=== PATIENT | female | born 2000 | race Caucasian/White ===

== ENCOUNTER 2021-07-26 11:01 | Emergency (ER) | payer MEDICAID ==
[~2021-07-26] VITALS: Ht 154.9 cm; Wt 54.4 kg
[2021-07-26 11:27] VITALS: BP 127/61
[2021-07-26 14:21] LABS: BASOPHILS % (AUTO) 0.4 % (0.0-2.0); EOSINOPHILS % (AUTO) 0.2 % (0.0-4.0); HEMATOCRIT 42.6 % (36-48); HEMOGLOBIN 14.4 g/dL (12.0-16.0); MEAN CORPUSCULAR HEMOGLOBIN 29 pg (27-31); MEAN CORPUSCULAR HGB CONC 34 g/dL (33-37); MONOCYTES # (AUTO) 0.6 K/uL (0.8-1.0); MONOCYTES % (AUTO) 4.3 % (1.7-9.3); NEUTROPHILS # (AUTO) 11.2 K/uL (1.8-7.7); NEUTROPHILS % (AUTO) 87.1 % (42.2-75.2); PLATELET COUNT (AUTO) 288 K/uL (140-450); RED BLOOD CELL COUNT(AUTO) 4.89 MIL/uL (4.20-5.40); RED CELL DISTRIBUTION WIDTH 13.5 % (11.6-13.7); WHITE BLOOD COUNT (AUTO) 12.9 K/uL (4.5-11.0)
[2021-07-26] MEDS ORDERED: MAG355OR2 PO (14:45)
[2021-07-26] MEDS ORDERED: FAMO-90 PO (14:45)
[2021-07-26] MEDS ORDERED: ONDA-188 PO (14:45)
[2021-07-26 15:06] LABS: ANION GAP 16.9 (8-16); CARBON DIOXIDE 25.2 mmol/L (21-32); CHLORIDE 101 mmol/L (98-107); CREATININE 0.6 mg/dL (0.6-1.3); GFR ARICAN-AMERICAN 164 mL/min (>90); GLUCOSE 84 mg/dL (74-106); POTASSIUM 4.1 mmol/L (3.5-5.1); SODIUM SERUM 139 mmol/L (136-145); UREA NITROGEN, BLOOD 9 mg/dL (7-18)
[2021-07-26 15:20] LABS: ALBUMIN 3.9 g/dL (3.4-5.0); ASPARTATE AMINOTRANSFERASE 20 U/L (15-37); LIPASE 63 U/L (73-393); MAGNESIUM 2.2 mg/dL (1.8-2.4); THYROID STIMULATING HORMONE < 0.01 uIU/mL (0.34-3.74); TOTAL BILIRUBIN 0.3 mg/dL (0.0-1.0)
[2021-07-26] MEDS ORDERED: DOXY1TCP PO (16:51)
[2021-07-26 17:20] VITALS: BP 132/72
--- NOTE | 2021-07-26 17:20 | NUR ---
Patient discharged with v/s stable. Written and verbal after care instructions given THREATENED MISCARRIAGE, HYPEREMESIS GRAVIDARUM, AND FIRST TRIMESTER OF and explained. Patient alert, oriented and verbalized understanding of instructions. Ambulatory with steady gait. All questions addressed prior to discharge. ID band removed. Patient advised to follow up with PMD. Rx of DICLEGIS given. Patient educated on indication of medication including possible reaction and side effects. Opportunity to ask questions provided and answered.
== END 2021-07-26 17:20 | disposition home or self-care (01) ==
LOC: MED 11:01
DX: O21.9 Vomiting of pregnancy, unspecified (principal); O26.891 Other specified pregnancy related conditions, first trimester; Z3A.01 Less than 8 weeks gestation of pregnancy
CPT/HCPCS: 36415; 76801; 80053; 81002; 81025; 83690; 83735; 84443; 84702; 85025; 99284; Q0092

== ENCOUNTER 2021-08-24 20:47 | Emergency (ER) | payer MEDICAID ==
[~2021-08-24] VITALS: Ht 154.9 cm; Wt 49.0 kg
[~2021-08-24 20:47] MED LIST: DOXY1TCP PO
[2021-08-24 20:50] VITALS: BP 110/50
--- NOTE | 2021-08-24 20:50 | NUR ---
TO BED AMBULATORY
--- NOTE | 2021-08-24 21:00 | NUR ---
RECEIVED IN BED 7 WITH C/O VAG BLEEDING,SINCE YESTERDAY, WITH BLOOD CLOTS, HEAVY, AND PAIN WHEN SHE URINATE. 11 WEEKS, LMP 05/05
--- NOTE | 2021-08-24 21:08 | NUR ---
LAB AT BEDSIDE
--- NOTE | 2021-08-24 21:13 | NUR ---
US AT BEDSIDE
--- NOTE | 2021-08-24 22:05 | NUR ---
PELVIC EXAM DONE. 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
[2021-08-24 22:06] LABS: BASOPHILS % (AUTO) 0.5 % (0.0-2.0); EOSINOPHILS # (AUTO) 0.1 K/uL (0-0.4); EOSINOPHILS % (AUTO) 0.8 % (0.0-4.0); HEMATOCRIT 34.4 % (36-48); HEMOGLOBIN 11.9 g/dL (12.0-16.0); LYMPHOCYTES # (AUTO) 1.9 K/uL (2.5-16.5); LYMPHOCYTES % (AUTO) 19.7 % (20.5-51.1); MEAN CORPUSCULAR HEMOGLOBIN 29 pg (27-31); MEAN CORPUSCULAR HGB CONC 35 g/dL (33-37); MEAN CORPUSCULAR VOLUME 84.7 fL (80-94); MONOCYTES # (AUTO) 0.8 K/uL (0.8-1.0); NEUTROPHILS # (AUTO) 6.8 K/uL (1.8-7.7); PLATELET COUNT (AUTO) 213 K/uL (140-450); RED BLOOD CELL COUNT(AUTO) 4.06 MIL/uL (4.20-5.40); RED CELL DISTRIBUTION WIDTH 12.9 % (11.6-13.7); WHITE BLOOD COUNT (AUTO) 9.5 K/uL (4.5-11.0)
[2021-08-24 22:32] LABS: ANION GAP 12.8 (8-16); CARBON DIOXIDE 25.9 mmol/L (21-32); CREATININE 0.4 mg/dL (0.6-1.3); POTASSIUM 3.7 mmol/L (3.5-5.1)
[2021-08-24 22:33] LABS: APPEARANCE,URINE CLEAR (CLEAR); BILIRUBIN,URINE NEGATIVE (NEGATIVE); BLOOD, URINE 3+ (NEGATIVE); COLOR,URINE YELLOW (YELLOW); LEUKOCYTE ESTERASE ,URINE NEGATIVE (NEGATIVE); NITRITE, URINE NEGATIVE (NEGATIVE); PH,URINE 5.5 (5.0-9.0); UGLUCOSE NEGATIVE (NEGATIVE)
[2021-08-24 22:47] LABS: RBC,URINE 20-50 /HPF (0-5); WBC,URINE 0-5 /HPF (0-5)
--- NOTE | 2021-08-25 00:54 | NUR ---
Patient discharged with v/s stable. Written and verbal after care instructions given and explained. Patient verbalized understanding. Ambulatory with steady gait. All questions addressed prior to discharge. Advised to follow up with PMD.
== END 2021-08-25 00:54 | disposition home or self-care (01) ==
LOC: MED 20:47
DX: O20.0 Threatened abortion (principal); Z3A.11 11 weeks gestation of pregnancy; Z79.899 Other long term (current) drug therapy
CPT/HCPCS: 36415; 76801; 80048; 81001; 84702; 85025; 86900; 86901; 99284; Q0092

== ENCOUNTER 2021-10-12 16:21 | Emergency (ER) | payer MEDICAID ==
[~2021-10-12] VITALS: Ht 154.9 cm; Wt 53.5 kg
[2021-10-12 16:28] VITALS: BP 107/59
[2021-10-12 17:29] LABS: BASOPHILS # (AUTO) 0.1 K/uL (0.00-0.22); BASOPHILS % (AUTO) 0.4 % (0.0-2.0); EOSINOPHILS # (AUTO) 0.2 K/uL (0-0.4); EOSINOPHILS % (AUTO) 1.1 % (0.0-4.0); HEMATOCRIT 37.6 % (36-48); HEMOGLOBIN 12.6 g/dL (12.0-16.0); LYMPHOCYTES # (AUTO) 1.9 K/uL (2.5-16.5); LYMPHOCYTES % (AUTO) 13.4 % (20.5-51.1); MEAN CORPUSCULAR HEMOGLOBIN 29 pg (27-31); MEAN CORPUSCULAR HGB CONC 33 g/dL (33-37); MEAN CORPUSCULAR VOLUME 86.7 fL (80-94); MONOCYTES # (AUTO) 0.9 K/uL (0.8-1.0); MONOCYTES % (AUTO) 6.2 % (1.7-9.3); NEUTROPHILS # (AUTO) 11.2 K/uL (1.8-7.7); NEUTROPHILS % (AUTO) 78.9 % (42.2-75.2); PLATELET COUNT (AUTO) 228 K/uL (140-450); RED BLOOD CELL COUNT(AUTO) 4.34 MIL/uL (4.20-5.40); RED CELL DISTRIBUTION WIDTH 14.6 % (11.6-13.7); WHITE BLOOD COUNT (AUTO) 14.2 K/uL (4.5-11.0)
--- NOTE | 2021-10-12 17:34 | NUR ---
PT AMBULATED TO ER BED 6
--- NOTE | 2021-10-12 17:40 | NUR ---
21 y/o F BIB self from home c/o low abdomen pain and vaginal bleeding x 2 days. Patient A&Ox4, ambulatory, 18 weeks states low abd pain, 7/10, sharp/intermittent, radiating to low back. Pt reports spotting yesterday and states bleeding increased earlier today; reports a few dime-sized clots with dark red bleeding. States saturating pads q1hr prior to arrival. Patient denies n/v/d, dysuria, vaginal discomfort/discharge/odor. Reports slight dizziness but states because she is hungry right now. Denies medications prior to arrival. Bed locked in lowest position, side rails x 1. PMH/Sx/Meds: Denies NKDA
--- NOTE | 2021-10-12 17:40 | NUR ---
Patient transported to US by wheelchair
[2021-10-12 17:48] LABS: APPEARANCE,URINE CLEAR (CLEAR); BILIRUBIN,URINE NEGATIVE (NEGATIVE); BLOOD, URINE 3+ (NEGATIVE); COLOR,URINE YELLOW (YELLOW); LEUKOCYTE ESTERASE ,URINE NEGATIVE (NEGATIVE); NITRITE, URINE NEGATIVE (NEGATIVE); UGLUCOSE NEGATIVE (NEGATIVE)
[2021-10-12 17:50] LABS: RBC,URINE 11-20 (MOD) /HPF (0-5); WBC,URINE 0 /HPF (0-5)
[2021-10-12 18:00] LABS: ANION GAP 10.9 (8-16); CARBON DIOXIDE 27.3 mmol/L (21-32); CREATININE 0.6 mg/dL (0.6-1.3); POTASSIUM 4.2 mmol/L (3.5-5.1)
--- NOTE | 2021-10-12 18:15 | NUR ---
Patient returned from US by wheelchair.
--- NOTE | 2021-10-12 18:36 | NUR ---
Dr. Moscoso is evaluating patient at bedside
[2021-10-12 18:39] VITALS: BP 111/62
[2021-10-12] MEDS ORDERED: ACETAMINOPHEN EXTRA STRENGTH 500 MG TAB PO ONE (18:55)
--- NOTE | 2021-10-12 19:05 | NUR ---
Patient discharged with v/s stable. Written and verbal after care instructions given and explained for Vaginal Bleeding Durin (2nd trimester). Patient verbalized understanding. Ambulatory with steady gait. All questions addressed prior to discharge. Advised to follow up with PMD. Work/school note provided.
[2021-10-13] MEDS ORDERED: PNV91TAB8 PO (05:39)
== END 2021-10-12 19:05 | disposition home or self-care (01) ==
LOC: MED 16:21
DX: O20.0 Threatened abortion (principal); Z3A.18 18 weeks gestation of pregnancy; Z79.899 Other long term (current) drug therapy
CPT/HCPCS: 36415; 76805; 80048; 81001; 81025; 85025; 99284; Q0092

== ENCOUNTER 2021-11-01 20:12 | Emergency (ER) | payer MEDICAID ==
[~2021-11-01] VITALS: Ht 154.9 cm; Wt 53.1 kg
[~2021-11-01 20:12] MED LIST changes: -DOXY1TCP PO; +PNV91TAB8 PO
[2021-11-01 20:28] VITALS: BP 125/74
--- NOTE | 2021-11-01 20:50 | NUR ---
PT TAKEN TO ER BED 12
--- NOTE | 2021-11-01 21:30 | NUR ---
PT BIB SELF WITH COMPLAINT OF BLOOD IN THE URINE FOR TWO DAYS AND DISCOMFORT WHEN VOIDING. PT STATES SHE HAD A STILLBIRTH TWO WEEKS AGO, IS NOT TAKING ANY MEDICATIONS. DENIES ANY PAIN AT THIS MOMENT. PMH: NONE SURGERIES: NONE
[2021-11-01] MEDS ORDERED: CEPH-588 PO (22:38)
[2021-11-02 00:05] VITALS: BP 125/74
== END 2021-11-02 00:05 | disposition home or self-care (01) ==
LOC: MED 20:12
DX: N39.0 Urinary tract infection, site not specified (principal); Z79.899 Other long term (current) drug therapy; Z79.2 Long term (current) use of antibiotics
CPT/HCPCS: 76830; 81002; 81025; 99284; Q0092

== ENCOUNTER 2021-11-15 06:05 | Emergency (ER) | payer MEDICAID ==
[~2021-11-15] VITALS: Ht 154.9 cm; Wt 54.4 kg
[~2021-11-15 06:05] MED LIST changes: +CEPH-588 PO
[2021-11-15 06:09] VITALS: BP 106/65
--- NOTE | 2021-11-15 06:15 | NUR ---
PT TAKEN TO ER BED 08
[2021-11-15] MEDS ORDERED: IBUPROFEN 600 MG TAB PO ONE (06:20)
--- NOTE | 2021-11-15 06:24 | NUR ---
21 y/o f bib self for sore thoat . pain has been for x2 days . pt had a fever pt 102F last night. pt states she feels fatigued and tired. pt took no med for fever and used salt water to gargle for sore throat. pt is a&0 x4 , ambulatory, skin intact. pmh: n/a rx: n/a allergies: nka
--- NOTE | 2021-11-15 06:58 | NUR ---
SWABS TAKEN TO LAB
--- NOTE | 2021-11-15 07:20 | NUR ---
Pt report given to AMY POSADA. Transfer of care at this time.
--- NOTE | 2021-11-15 07:23 | NUR ---
REPORT RECEIVED FROM AMY JONES. ASSUMED CARE AT THIS TIME
[2021-11-15] MEDS ORDERED: PENICILLIN V POTASSIUM 250 MG TAB PO ONE (08:00)
[2021-11-15] MEDS ORDERED: PENI-321 PO (08:01)
--- NOTE | 2021-11-15 08:05 | NUR ---
DR GARCIA AT BEDSIDE
--- NOTE | 2021-11-15 08:25 | NUR ---
Patient discharged with v/s stable. Written and verbal after care instructions FOR STREP THROAT given and explained. Patient alert, oriented and verbalized understanding of instructions. Ambulatory with steady gait. All questions addressed prior to discharge. ID band removed. Patient advised to follow up with PMD. Rx of PENICILLIN V POTASSIUM given. Opportunity to ask questions provided and answered.
[2021-11-15 08:26] VITALS: BP 111/58
== END 2021-11-15 08:25 | disposition home or self-care (01) ==
LOC: MED 06:05
DX: J02.0 Streptococcal pharyngitis (principal); Z20.822 Contact with and (suspected) exposure to COVID-19; Z79.899 Other long term (current) drug therapy
CPT/HCPCS: 87081; 99283

== ENCOUNTER 2022-01-30 09:18 | Emergency (ER) | payer MEDICAID ==
[~2022-01-30] VITALS: Ht 154.9 cm; Wt 54.4 kg
[~2022-01-30 09:18] MED LIST changes: +PENI-321 PO
[2022-01-30 09:27] VITALS: BP 110/69
--- NOTE | 2022-01-30 09:39 | NUR ---
PT AMBULATED TO ER BED 9 WITH A STEADY GAIT.
--- NOTE | 2022-01-30 09:47 | NUR ---
21 Y/O FEMALE C/O VAGINAL BLEEDING WITH LOWER BACK PAIN 01/12 DESCRIBES SHARP AND ACHING. PT STATES SHE HAS LARGE BLOOD CLOTS PRESENT WITH VAGINAL DISCHARGE YELLOW AND BROWN PRESENT. PT STATES SHE HAS LOWER BACK DISCOMFORT S/P STILLBIRTH 10/13/21. PT STATES SHE IS TAKING CONTROL AND HAS AN APPT WITH PCP. DENIES FEVER/CHILLS. DENIES N/V/D. PMH: HYPOTHYROIDISM NKA
--- NOTE | 2022-01-30 09:59 | NUR ---
DR. PECK AT PT BEDSIDE FOR FURTHER EVALUATION.
[2022-01-30] MEDS ORDERED: IBUP-2213 PO (10:05)
[2022-01-30 10:22] VITALS: BP 130/72
--- NOTE | 2022-01-30 10:22 | NUR ---
Patient discharged with v/s stable. Written and verbal after care instructions given FOR DYSFUNCTIONAL UTERINE BLEEDING and explained. Patient alert, oriented and verbalized understanding of instructions. Ambulatory with steady gait. All questions addressed prior to discharge. ID band removed. Patient advised to follow up with PMD. Rx of MOTRIN given. Patient educated on indication of medication including possible reaction and side effects. Opportunity to ask questions provided and answered.
[2022-01-30 14:20] LABS: BILIRUBIN,URINE NEGATIVE (NEGATIVE); BLOOD, URINE NEGATIVE (NEGATIVE); COLOR,URINE YELLOW (YELLOW); LEUKOCYTE ESTERASE ,URINE TRACE (NEGATIVE); NITRITE, URINE NEGATIVE (NEGATIVE); UGLUCOSE NEGATIVE (NEGATIVE)
[2022-01-30 14:46] LABS: APPEARANCE,URINE HAZY (CLEAR)
[2022-01-30 17:01] LABS: RBC,URINE NONE SEEN /HPF (0-5); WBC,URINE 0-5 /HPF (0-5)
== END 2022-01-30 10:22 | disposition home or self-care (01) ==
LOC: MED 09:18
DX: N93.8 Other specified abnormal uterine and vaginal bleeding (principal); E03.9 Hypothyroidism, unspecified; Z79.899 Other long term (current) drug therapy
CPT/HCPCS: 81001; 81025; 99283

== ENCOUNTER 2022-09-22 03:15 | Emergency (ER) | payer MEDICAID ==
[~2022-09-22] VITALS: Ht 154.9 cm; Wt 56.2 kg
[~2022-09-22 03:15] MED LIST changes: +IBUP-2213 PO
[2022-09-22 03:21] VITALS: BP 112/71
--- NOTE | 2022-09-22 04:01 | NUR ---
Patient taken to bed 12.
--- NOTE | 2022-09-22 04:02 | NUR ---
Dr. Kay examining patient.
--- NOTE | 2022-09-22 04:08 | NUR ---
Patient resting in bed, A/Ox4, chest rise and fall symmetrical, no s/s of distress, patient on monitor.
[2022-09-22] MEDS ORDERED: ACETAMINOPHEN 325 MG TAB PO ONE (04:10)
[2022-09-22] MEDS ORDERED: LIDOCAINE 5% 1 EA PATCH TP ONE (04:10)
[2022-09-22 05:26] LABS: BASOPHILS % (AUTO) 0.3 % (0.0-2.0); EOSINOPHILS # (AUTO) 0.1 K/uL (0-0.4); EOSINOPHILS % (AUTO) 1.2 % (0.0-4.0); HEMATOCRIT 38.1 % (36-48); HEMOGLOBIN 12.9 g/dL (12.0-16.0); LYMPHOCYTES # (AUTO) 1.4 K/uL (2.5-16.5); LYMPHOCYTES % (AUTO) 11.4 % (20.5-51.1); MEAN CORPUSCULAR HEMOGLOBIN 28 pg (27-31); MEAN CORPUSCULAR HGB CONC 34 g/dL (33-37); MONOCYTES # (AUTO) 0.9 K/uL (0.8-1.0); MONOCYTES % (AUTO) 7.5 % (1.7-9.3); NEUTROPHILS # (AUTO) 9.6 K/uL (1.8-7.7); NEUTROPHILS % (AUTO) 79.6 % (42.2-75.2); PLATELET COUNT (AUTO) 225 K/uL (140-450); RED CELL DISTRIBUTION WIDTH 14.1 % (11.6-13.7)
[2022-09-22 05:52] LABS: APPEARANCE,URINE CLEAR (CLEAR); BILIRUBIN,URINE NEGATIVE (NEGATIVE); BLOOD, URINE NEGATIVE (NEGATIVE); COLOR,URINE YELLOW (YELLOW); LEUKOCYTE ESTERASE ,URINE 2+ (NEGATIVE); NITRITE, URINE NEGATIVE (NEGATIVE); UGLUCOSE NEGATIVE (NEGATIVE)
[2022-09-22 05:56] LABS: ALBUMIN 3.2 g/dL (3.4-5.0); ANION GAP 12.7 (8-16); CARBON DIOXIDE 25.6 mmol/L (21-32); CREATININE 0.5 mg/dL (0.6-1.3); POTASSIUM 3.3 mmol/L (3.5-5.1); TOTAL BILIRUBIN 0.6 mg/dL (0.0-1.0)
[2022-09-22 06:02] LABS: RBC,URINE 0-5 /HPF (0-5)
[2022-09-22] MEDS ORDERED: CEPH-588 PO (06:20)
--- NOTE | 2022-09-22 06:21 | NUR ---
Patient resting in bed, A/Ox4, chest rise and fall symmetrical, no c/o pain or s/s of distress, patient on monitor.
[2022-09-22 06:41] VITALS: BP 112/63
== END 2022-09-22 06:42 | disposition home or self-care (01) ==
LOC: MED 03:15
DX: O23.11 Infections of bladder in pregnancy, first trimester (principal); O26.891 Other specified pregnancy related conditions, first trimester; E03.9 Hypothyroidism, unspecified; Z3A.11 11 weeks gestation of pregnancy; Z79.899 Other long term (current) drug therapy
CPT/HCPCS: 36415; 76817; 80053; 81001; 83690; 84702; 85025; 87086; 99284; Q0092

== ENCOUNTER 2023-12-30 18:09 | Emergency (ER) | payer SELFPAY ==
[~2023-12-30] VITALS: Ht 162.6 cm; Wt 76.8 kg
[2023-12-30 18:13] VITALS: BP 129/84; PULSE 76; RESP 18; TEMP 98.4; O2SAT 97
[2023-12-30] MEDS: IBUPROFEN 400 MG TAB PO ONE (19:45)
[2023-12-30] MEDS: ACETAMINOPHEN EXTRA STRENGTH 500 MG TAB PO ONE (19:45)
[2023-12-30 19:46] LABS: APPEARANCE,URINE CLEAR (CLEAR); COLOR,URINE YELLOW (YELLOW)
[2023-12-30 19:47] LABS: BILIRUBIN,URINE NEGATIVE (NEGATIVE); BLOOD, URINE 3+ (NEGATIVE); NITRITE, URINE NEGATIVE (NEGATIVE); PROTEIN,URINE NEGATIVE (NEGATIVE); UGLUCOSE NEGATIVE (NEGATIVE); UROBILINOGEN,URINE 0.2 EU/dL (0.2 - 1)
[2023-12-30 19:48] LABS: LEUKOCYTE ESTERASE ,URINE NEGATIVE (NEGATIVE)
[2023-12-30] MEDS ORDERED: CRUSHER, PILL MC ONE (19:54)
[2023-12-30] MEDS: FLUCONAZOLE 100 MG TAB PO ONE (19:56)
[2023-12-30 19:57] LABS: BACTERIA,URINE FEW /HPF (None Seen); SQUAMOUS EPITHELIAL CELL,UR 4-10 (MOD) /LPF (0-3 (FEW)); WBC,URINE 0-5 /HPF (0-5)
[2023-12-30 20:11] VITALS: BP 115/78; PULSE 82; RESP 18; TEMP 98; O2SAT 98
== END 2023-12-30 20:11 | disposition home or self-care (01) ==
LOC: MED 18:09
DX: R10.2 Pelvic and perineal pain (principal); E03.9 Hypothyroidism, unspecified; Z79.2 Long term (current) use of antibiotics; Z79.1 Long term (current) use of non-steroidal anti-inflammatories (NSAID)
CPT/HCPCS: 81001; 81025; 87086; 99284